=== PATIENT | female | born 1950 | race Hispanic/Latino ===

== ENCOUNTER 2023-11-20 10:54 | Emergency (ER) | payer MEDICARE, OTHER ==
[~2023-11-20] VITALS: Ht 160 cm; Wt 53.5 kg
[~2023-11-20 10:54] MED LIST: JENTADUETO 2.51 EACH PO; VITAMIN D250000 UNIT; VYTORIN 10-201 EACH PO
[2023-11-20 11:42] LABS: BASOPHILS % 0.5 % (0.0-1.0); EOSINOPHILS % 0.6 % (0.0-6.0); HEMATOCRIT 47.8 % (34.2-44.1); HEMOGLOBIN 15.4 g/dL (12.0-16.0); LYMPHOCYTES # (AUTO) 2.6 (1.0-3.2); MEAN CORPUSCULAR HEMOGLOBIN 29.7 pg (28-32); MEAN CORPUSCULAR HGB CONC 32.2 g/dL (31-35); MEAN CORPUSCULAR VOLUME 92.3 fL (81-99); MONOCYTES # (AUTO) 0.5 (0.2-0.8); MONOCYTES % 7.7 % (4.4-11.3); NEUTROPHILS # (AUTO) 3.3 (2.1-6.9); PLATELET COUNT 415 x10e3/uL (140-360); RED BLOOD COUNT 5.18 x10e6/uL (3.6-5.1); RED CELL DISTRIBUTION WIDTH 14.8 % (11.7-14.4); WHITE BLOOD COUNT 6.52 x10e3/uL (4.8-10.8)
[2023-11-20] MEDS: SODIUM CHLORIDE 0.9% 1000ML 1,000 ML IV ONE (11:46)
[2023-11-20] MEDS: ONDANSETRON HCL INJ 2MG/ML 2ML 2 MG/ML VIAL IV STA (11:46)
[2023-11-20] MEDS: DICYCLOMINE HCL 20 MG/2 ML VIAL IM ONE (12:02)
[2023-11-20 12:20] LABS: ALBUMIN 3.7 g/dL (3.5-5.0); ALBUMIN/GLOBULIN RATIO 0.9 (0.8-2.0); ANION GAP 14.1 mmol/L (8-16); BILIRUBIN,TOTAL 0.4 mg/dL (0.2-1.2); CALCIUM 9.3 mg/dL (8.4-10.2); CREATININE, SERUM 0.74 mg/dL (0.57-1.11); POTASSIUM 4.1 mmol/L (3.5-5.1)
[2023-11-20 12:26] LABS: BILIRUBIN,URINE NEGATIVE (NEGATIVE); CLARITY,URINE CLEAR (CLEAR); COLOR,URINE YELLOW (YELLOW); GLUCOSE, URINE NEGATIVE (NEGATIVE); KETONES,URINE 1+ (NEGATIVE); LEUKOCYTE ESTERASE ,URINE NEGATIVE (NEGATIVE); NITRITE,URINE NEGATIVE (NEGATIVE); PH,URINE 7 (5 - 7); PROTEIN,URINE DIPSTICK NEGATIVE (NEGATIVE); URINE UROBILINOGEN 0.2 mg/dL (0.2 - 1)
[2023-11-20] MEDS ORDERED: IOPAMIDOL 370 MG/ML 100 ML INFUS..BTL INJ ONE (12:49)
[2023-11-20 13:13] LABS: BACTERIA,URINE FEW /HPF; EPITHELIAL CELLS,URINE MODERATE /LPF; RBC,URINE 21-50 /HPF (0-5); WBC,URINE (MAN) 0-5 /HPF (0-5)
[2023-11-20 13:40] VITALS: PULSE 50; RESP 16; TEMP 97.8; O2SAT 99
[2023-11-20] MEDS ORDERED: ONDANSETRON ODT4 MG PO (13:40)
[2023-11-20] MEDS ORDERED: DICYCLOMINE HCL20 MG PO (13:40)
== END 2023-11-20 13:55 | disposition home or self-care (01) ==
LOC: ER 11:04
DX: R10.31 Right lower quadrant pain (principal); R11.2 Nausea with vomiting, unspecified; I10 Essential (primary) hypertension; E78.5 Hyperlipidemia, unspecified; J45.909 Unspecified asthma, uncomplicated; E78.00 Pure hypercholesterolemia, unspecified; Z87.19 Personal history of other diseases of the digestive system
CPT/HCPCS: 36415; 74177; 80053; 81001; 83690; 84484; 85025; 93005; 99284; J0500; J2405; J7030; Q9967

== ENCOUNTER 2023-11-21 12:05 | Emergency (ER) | payer MEDICARE, OTHER ==
[~2023-11-21] VITALS: Ht 160 cm; Wt 53.5 kg
[~2023-11-21 12:05] MED LIST changes: +DICYCLOMINE HCL20 MG PO; +ONDANSETRON ODT4 MG PO
[2023-11-21 12:25] VITALS: TEMP 98
[2023-11-21 13:30] VITALS: PULSE 50; RESP 16; O2SAT 97
== END 2023-11-21 13:59 | disposition home or self-care (01) ==
LOC: ER 12:24
DX: R10.31 Right lower quadrant pain (principal); K57.30 Diverticulosis of large intestine without perforation or abscess without bleeding; R11.2 Nausea with vomiting, unspecified; I10 Essential (primary) hypertension; E78.5 Hyperlipidemia, unspecified; E78.00 Pure hypercholesterolemia, unspecified; J45.909 Unspecified asthma, uncomplicated; M79.7 Fibromyalgia
CPT/HCPCS: 99282

== ENCOUNTER → 2023-12-11 | Day surgery (SDC) | payer MEDICARE, OTHER ==
[2023-12-05 09:43] LABS: BASOPHILS % 0.3 % (0.0-1.0); EOSINOPHILS # (AUTO) 0.1 (0.0-0.4); EOSINOPHILS % 1.5 % (0.0-6.0); HEMATOCRIT 48.1 % (34.2-44.1); HEMOGLOBIN 15.3 g/dL (12.0-16.0); LYMPHOCYTES # (AUTO) 2.4 (1.0-3.2); LYMPHOCYTES % 36.9 % (18.0-39.1); MEAN CORPUSCULAR HEMOGLOBIN 29.9 pg (28-32); MEAN CORPUSCULAR HGB CONC 31.8 g/dL (31-35); MEAN CORPUSCULAR VOLUME 93.9 fL (81-99); MONOCYTES # (AUTO) 0.6 (0.2-0.8); MONOCYTES % 9.7 % (4.4-11.3); NEUTROPHILS # (AUTO) 3.3 (2.1-6.9); NEUTROPHILS % 51.4 % (38.7-80.0); PLATELET COUNT 352 x10e3/uL (140-360); RED BLOOD COUNT 5.12 x10e6/uL (3.6-5.1); RED CELL DISTRIBUTION WIDTH 14.9 % (11.7-14.4); WHITE BLOOD COUNT 6.48 x10e3/uL (4.8-10.8)
[~2023-12-11] MED LIST changes: +AMLODIPINE BESYL5 MG PO; +DEXAMETHASONE SOD PHOS INJ 4 MG/ML SDV ONE; +LIDOCAINE HCL 2% LOCAL INJ 5 ML SDV VIAL INJ ONE; +METOCLOPRAMIDE HCL 10 MG/2ML VIAL ONE; +ONDANSETRON HCL INJ 2MG/ML 2ML 2 MG/ML VIAL ONE; +PROPOFOL IV EMULSION 10 MG/ML 20 ML VIAL ONE; +PROPOFOL IV EMULSION 50 ML IV ONE; +SEVOFLURANE INHAL SOLN 250 ML PEN BTL ONE
[2023-12-11] MEDS: LACTATED RINGER'S 1,000 ML ONE (15:43)
[2023-12-11 18:55] VITALS: TEMP 97.3
[2023-12-11 19:14] LABS: WBC,FECAL (FECAL LACTOFERRIN) NEGATIVE (NEGATIVE)
[2023-12-11 19:25] VITALS: BP 162/78; PULSE 52; RESP 16; O2SAT 97
== END | disposition home or self-care (01) ==
LOC: OR 14:27
PROVIDERS: ATTEND Internal Medicine Gastroenterology
DX: K29.50 Unspecified chronic gastritis without bleeding (principal); B96.81 Helicobacter pylori [H. pylori] as the cause of diseases classified elsewhere; D12.2 Benign neoplasm of ascending colon; D12.8 Benign neoplasm of rectum; K52.9 Noninfective gastroenteritis and colitis, unspecified; K31.A15 Gastric intestinal metaplasia without dysplasia, involving multiple sites; K21.00 Gastro-esophageal reflux disease with esophagitis, without bleeding; K31.89 Other diseases of stomach and duodenum; K57.30 Diverticulosis of large intestine without perforation or abscess without bleeding; K62.89 Other specified diseases of anus and rectum; K64.8 Other hemorrhoids; Z71.3 Dietary counseling and surveillance; R63.4 Abnormal weight loss; I10 Essential (primary) hypertension; Z71.89 Other specified counseling; J45.909 Unspecified asthma, uncomplicated; Z01.810 Encounter for preprocedural cardiovascular examination; Z01.812 Encounter for preprocedural laboratory examination; Z79.899 Other long term (current) drug therapy; Z87.19 Personal history of other diseases of the digestive system
CPT/HCPCS: 36415; 43239; 45380; 45385; 83630; 83993; 85025; 87045; 87177; 87324; 87328; 87449; 93005; J2470; J2704; J7121; J1100; J2003; J2405; J2765

== ENCOUNTER → 2024-01-13 | Outpatient (REF) | payer MEDICARE, OTHER ==
[~2024-01-13] MED LIST changes: -DEXAMETHASONE SOD PHOS INJ 4 MG/ML SDV ONE; +IOPAMIDOL 370 MG/ML 100 ML INFUS..BTL INJ ONE; -LIDOCAINE HCL 2% LOCAL INJ 5 ML SDV VIAL INJ ONE; -METOCLOPRAMIDE HCL 10 MG/2ML VIAL ONE; -ONDANSETRON HCL INJ 2MG/ML 2ML 2 MG/ML VIAL ONE; -PROPOFOL IV EMULSION 10 MG/ML 20 ML VIAL ONE; -PROPOFOL IV EMULSION 50 ML IV ONE; -SEVOFLURANE INHAL SOLN 250 ML PEN BTL ONE
[2024-01-13 15:45] LABS: CREATININE, SERUM 0.71 mg/dL (0.57-1.11)
== END ==
LOC: CT 14:45
PROVIDERS: ATTEND Nurse Practitioner
DX: R63.4 Abnormal weight loss (principal); Z86.0109 Personal history of other colon polyps
CPT/HCPCS: 36415; 74177; 82565; 84520; Q9967

== ENCOUNTER → 2024-04-09 | Outpatient (REF) | payer MEDICARE, OTHER ==
[2024-04-09 14:04] LABS: CREATININE, SERUM 0.72 mg/dL (0.57-1.11)
== END ==
LOC: CT 13:12
PROVIDERS: ATTEND Nurse Practitioner
DX: R63.4 Abnormal weight loss (principal); Z86.0109 Personal history of other colon polyps
CPT/HCPCS: 36415; 74177; 82565; 84520; Q9967

== ENCOUNTER 2024-06-27 08:06 | Emergency (ER) | payer MEDICARE, OTHER ==
[~2024-06-27] VITALS: Ht 160 cm; Wt 54.5 kg
[~2024-06-27 08:06] MED LIST changes: -IOPAMIDOL 370 MG/ML 100 ML INFUS..BTL INJ ONE
[2024-06-27] MEDS ORDERED: PANTOPRAZOLE SO40 MG PO (08:27)
[2024-06-27] MEDS ORDERED: BENZONATATE200 MG PO (08:27)
[2024-06-27] MEDS ORDERED: CORICIDIN HBP1 EAC1 PO (08:59)
[2024-06-27] MEDS ORDERED: VENTOLIN HFA18 GM INH (09:00)
[2024-06-27] MEDS ORDERED: AMOXICILLIN500 MG PO (09:04)
[2024-06-27 09:26] VITALS: PULSE 60; RESP 16; TEMP 97.6; O2SAT 98
== END 2024-06-27 09:26 | disposition home or self-care (01) ==
LOC: FSED 08:21
DX: R05.9 Cough, unspecified (principal); J06.9 Acute upper respiratory infection, unspecified; I70.0 Atherosclerosis of aorta; I10 Essential (primary) hypertension; E78.5 Hyperlipidemia, unspecified; E78.00 Pure hypercholesterolemia, unspecified; J45.909 Unspecified asthma, uncomplicated; M79.7 Fibromyalgia; Z11.52 Encounter for screening for COVID-19; Z87.19 Personal history of other diseases of the digestive system; Z87.891 Personal history of nicotine dependence
CPT/HCPCS: 0223U; 71046; 83518; 87400; 87420; 99283

== ENCOUNTER → 2024-08-04 | Outpatient (REF) | payer MEDICARE, OTHER ==
[~2024-08-04] MED LIST changes: +AMOXICILLIN500 MG PO; +BENZONATATE200 MG PO; +CORICIDIN HBP1 EAC1 PO; +PANTOPRAZOLE SO40 MG PO; +VENTOLIN HFA18 GM INH
== END ==
LOC: US 08:17
PROVIDERS: ATTEND Nurse Practitioner
DX: K29.70 Gastritis, unspecified, without bleeding (principal); A04.8 Other specified bacterial intestinal infections; K58.8 Other irritable bowel syndrome
CPT/HCPCS: 76700; 76856

== ENCOUNTER 2024-09-13 19:11 | Emergency (ER) | payer MEDICARE, OTHER ==
[~2024-09-13] VITALS: Ht 160 cm; Wt 55.8 kg
[2024-09-13 19:21] VITALS: PULSE 67; RESP 18; TEMP 98.2
[2024-09-13] MEDS ORDERED: IOPAMIDOL 370 MG/ML 100 ML INFUS..BTL INJ ONE (19:57)
[2024-09-13] MEDS: METOCLOPRAMIDE HCL 10 MG/2ML VIAL IV ONE (20:10)
[2024-09-13] MEDS ORDERED: REGLAN10 MG PO (21:43)
[2024-09-13 22:05] VITALS: BP 131/68; PULSE 62; RESP 18; TEMP 98.6; O2SAT 96
== END 2024-09-13 22:05 | disposition home or self-care (01) ==
LOC: FSED 19:43
DX: R51.9 Headache, unspecified (principal); R07.89 Other chest pain; R05.9 Cough, unspecified; M54.2 Cervicalgia; I10 Essential (primary) hypertension; E78.5 Hyperlipidemia, unspecified; M54.9 Dorsalgia, unspecified; G89.29 Other chronic pain; K21.9 Gastro-esophageal reflux disease without esophagitis; J45.909 Unspecified asthma, uncomplicated; M79.7 Fibromyalgia; R94.31 Abnormal electrocardiogram [ECG] [EKG]; Z87.19 Personal history of other diseases of the digestive system
CPT/HCPCS: 70496; 70498; 71046; 80048; 84484; 85025; 93005; 99284; J2765; Q9967

== ENCOUNTER → 2024-12-14 | Outpatient (REF) | payer MEDICARE, OTHER ==
[~2024-12-14] MED LIST changes: +IOPAMIDOL 370 MG/ML 100 ML INFUS..BTL INJ ONE; +REGLAN10 MG PO
[2024-12-14 09:30] LABS: EST GLOMERULAR FILTRATION RATE 90.0 ML/MIN (>=60)
== END ==
LOC: CT 07:20
PROVIDERS: ATTEND Nurse Practitioner
DX: R10.31 Right lower quadrant pain (principal); K29.70 Gastritis, unspecified, without bleeding; Z86.0100 Personal history of colon polyps, unspecified
CPT/HCPCS: 36415; 74177; 82565; 84520; Q9967